=== PATIENT | male | born 1975 | race Two or more races ===

== ENCOUNTER 2018-12-26 18:33 | Inpatient (IN) | payer OTHER ==
[~2018-12-26] VITALS: Ht 170.2 cm; Wt 102.5 kg
[2018-12-26 18:42] VITALS: BP 117/79
--- NOTE | 2018-12-26 18:45 | NUR ---
PRODUCTION SUPV NOTES PATIENT ARRIVED VIA GURNEY, PATIENT ADMITTED FROM [facility] ([phone] ext [phone]). REPORT RECEIVED FROM JAYANT MARK. PATIENT ACCOMPANIED BY . PATIENT AWAKE ALERT AND ORIENTED X 4, VERBALLY RESPONSIVE AND RESPONDS TO VERBAL AND TACTILE STIMULI. NO ACUTE DISTRESS. NO PAIN OR DISCOMFORT. NO CHANGES IN LOC NOTED AT THIS TIME. PATIENT CALM AND RELAXED. ANAM TIPTON WEB USER EXPERIENCE STRATEGIST MADE AWARE OF PATIENT ARRIVAL. WILL ENDORSE TO INCOMING SHIFT FOR FARRAH. BED LOCKED AND IN LOW POSITION. BILATERAL UPPER SIDE RAILS UP AND LOCKED. CALL LIGHT WITHIN EASY REACH
[2018-12-26] MEDS ORDERED: MAG HYDROX/AL HYDROX/SIMETH 30 ML UDC PO PRN (19:00)
[2018-12-26] MEDS ORDERED: ACETAMINOPHEN 325 MG TABLET PO PRN (19:00)
[2018-12-26] MEDS ORDERED: MAGNESIUM HYDROXIDE 30 ML UDC PO PRN (19:00)
[2018-12-26] MEDS ORDERED: ONDANSETRON HCL/PF 4 MG/2 ML VIAL IVP PRN (19:00)
[2018-12-26] MEDS ORDERED: Z GUARD REMEDY 2 OZ OINT TP PRN (19:00)
--- NOTE | 2018-12-26 19:30 | NUR ---
SPANISH INSTRUCTOR INITIAL NOTES Patient in bed, awake. A/O x 4. On RA denies SOB. Admitted for acute anemia, sinus rhythm in the tele monitor. Call light within reach, safety, measure explained verbalized understanding. Will cont to monitor.
[2018-12-26 20:00] VITALS: BP 129/67
[2018-12-26 20:14] LABS: CALCIUM, SERUM 8.3 mg/dL (8.5-10.1); CREATININE 0.8 mg/dL (0.6-1.3)
[2018-12-26 20:19] LABS: ALBUMIN 3.4 g/dL (3.4-5.0); PHOSPHORUS 3.4 mg/dL (2.5-4.9); TOTAL PROTEIN, SERUM 7.2 g/dL (6.4-8.2)
[2018-12-26 20:34] LABS: BASOPHILS # (AUTO) 0.1 /CMM (0.0-0.2); BASOPHILS % (AUTO) 0.9 % (0.0-2.0); EOSINOPHILS % (AUTO) 2.4 % (0.0-6.0); HEMATOCRIT 27 % (39-51); HEMOGLOBIN 8.1 g/dL (13.5-17.5); LYMPHOCYTES # (AUTO) 1.8 /CMM (0.8-4.8); LYMPHOCYTES % (AUTO) 22.2 % (20.0-44.0); MEAN CORPUSCULAR HGB CONC 30 g/dl (31.0-36.0); MEAN CORPUSCULAR VOLUME 65 fL (80-96); MONOCYTES # (AUTO) 0.7 /CMM (0.1-1.30); MONOCYTES % (AUTO) 8.8 % (2.0-12.0); NEUTROPHILS # (AUTO) 5.5 /CMM (1.8-8.9); NEUTROPHILS % (AUTO) 65.7 % (43.0-81.0); PLATELET COUNT (AUTO) 379 /CMM (150-450); RED BLOOD CELL COUNT(AUTO) 4.21 MIL/uL (4.5-6.0); WHITE BLOOD COUNT (AUTO) 8.3 K/uL (4.3-11.0)
[2018-12-26 21:56] LABS: IRON, SERUM 61 ug/dl (50-175); TOTAL IRON BINDING CAPACITY 497 ug/dl (250-450)
[2018-12-26 22:11] LABS: FERRITIN 4 ng/mL (8-388)
[2018-12-27] VITALS (8 sets, daily range): BP systolic 107–119; BP diastolic 53–73
[2018-12-27 01:04] LABS: BASOPHILS # (AUTO) 0.1 /CMM (0.0-0.2); BASOPHILS % (AUTO) 1.1 % (0.0-2.0); EOSINOPHILS % (AUTO) 4.5 % (0.0-6.0); HEMATOCRIT 27 % (39-51); HEMOGLOBIN 8.1 g/dL (13.5-17.5); LYMPHOCYTES % (AUTO) 26.7 % (20.0-44.0); MEAN CORPUSCULAR HGB CONC 30 g/dl (31.0-36.0); MEAN CORPUSCULAR VOLUME 64 fL (80-96); MONOCYTES # (AUTO) 0.5 /CMM (0.1-1.30); MONOCYTES % (AUTO) 7.2 % (2.0-12.0); NEUTROPHILS # (AUTO) 4.6 /CMM (1.8-8.9); NEUTROPHILS % (AUTO) 60.5 % (43.0-81.0); PLATELET COUNT (AUTO) 376 /CMM (150-450); RED BLOOD CELL COUNT(AUTO) 4.18 MIL/uL (4.5-6.0); WHITE BLOOD COUNT (AUTO) 7.6 K/uL (4.3-11.0)
[2018-12-27 06:24] LABS: APPEARANCE,URINE CLEAR (CLEAR); BILIRUBIN,URINE NEGATIVE (NEGATIVE); BLOOD, URINE NEGATIVE Ery/uL (NEGATIVE); COLOR,URINE YELLOW (YELLOW); KETONES,URINE NEGATIVE (NEGATIVE); LEUKOCYTE ESTERASE ,URINE TRACE (NEGATIVE); NITRITE, URINE NEGATIVE (NEGATIVE); PROTEIN,URINE NEGATIVE (NEGATIVE); UGLUCOSE NEGATIVE (NEGATIVE); UROBILINOGEN,URINE 0.2 EU/dL (0.2)
--- NOTE | 2018-12-27 06:36 | NUR ---
ACCREDITED LEGAL SECRETARY CLOSING NOTES Patient in bed, stable oxygen saturation on RA denies SOB. Sinus rhythm in the tele monitor. Ambulates independently, jaramillo BM this shift no diarrhea, voiding well. VSS No acute events overnight. Per CARROT GRADER INSPECTOR to transfuse PRBC 1 unit to keep Hgb > 8 as a standing order, patient is aware. GI consult for internal hemorrhoids. Maintained safety. Will endorse to oncoming RN.
[2018-12-27 06:58] LABS: CALCIUM, SERUM 8.2 mg/dL (8.5-10.1); CREATININE 0.9 mg/dL (0.6-1.3); MAGNESIUM 2.3 mg/dL (1.8-2.4); PHOSPHORUS 4.1 mg/dL (2.5-4.9); POTASSIUM 4.1 mmol/L (3.5-5.1)
[2018-12-27 07:15] LABS: BASOPHILS # (AUTO) 0.1 /CMM (0.0-0.2); EOSINOPHILS % (AUTO) 5.1 % (0.0-6.0); HEMATOCRIT 26 % (39-51); HEMOGLOBIN 7.8 g/dL (13.5-17.5); LYMPHOCYTES # (AUTO) 1.5 /CMM (0.8-4.8); LYMPHOCYTES % (AUTO) 23.3 % (20.0-44.0); MEAN CORPUSCULAR HGB CONC 30 g/dl (31.0-36.0); MEAN CORPUSCULAR VOLUME 65 fL (80-96); MONOCYTES # (AUTO) 0.7 /CMM (0.1-1.30); MONOCYTES % (AUTO) 10.4 % (2.0-12.0); NEUTROPHILS % (AUTO) 60.2 % (43.0-81.0); PLATELET COUNT (AUTO) 391 /CMM (150-450); RED BLOOD CELL COUNT(AUTO) 3.97 MIL/uL (4.5-6.0); WHITE BLOOD COUNT (AUTO) 6.6 K/uL (4.3-11.0)
--- NOTE | 2018-12-27 07:15 | NUR ---
Tele/RN - Assessment Patient is alert and oriented x 4, denies pain, stable on room air, tele shows SR, no active bleeding at this time. Labs reviewed noted with hemoglobin 7.8, with standing order to transfuse 1unit PRBC to keep hgb above 8.0. Skin is intact. Patient is ambulatory with steady gait. All needs attended. Will continue with current medical management.
[2018-12-27 07:21] LABS: THYROID STIMULATING HORMONE 2.514 uIU/mL (0.358-3.74)
[2018-12-27 08:29] LABS: RBC,URINE NONE SEEN /HPF (0-2); WBC,URINE 0-2 /HPF (0-3)
[2018-12-27 08:30] LABS: BACTERIA,URINE None seen /HPF (None Seen); SQUAMOUS EPITHELIAL CELL,UR None Seen /HPF (None Seen)
[2018-12-27] MEDS: PANTOPRAZOLE 40 MG VIAL IV SCH (08:31)
--- NOTE | 2018-12-27 10:00 | NUR ---
MS/RN - TREASURY MANAGEMENT SALES CONSULTANT Gerry Seen and examined by GRAYSON Ruiz.
--- NOTE | 2018-12-27 11:00 | NUR ---
MS/RN - Consent for blood transfusion Patient signed consent for blood transfusion and copy of guide to blood transfusion provided. Patient's current hgb is 7.8, no active bleeding seen, will receive 1 unit PRBC as ordered.
--- NOTE | 2018-12-27 12:45 | NUR ---
MS/RN - Blood transfusion Patient with ongoing 1 unit PRBC, to infuse for 3 hours, no adverse reaction seen, denies shortness of breath, chills, itchiness, remain afebrile. Will continue to monitor closely.
[2018-12-27] MEDS: POLYETHYLENE GLYCOL 3350 17 GM POWD.PACK PO SCH (15:02)
--- NOTE | 2018-12-27 15:35 | NUR ---
MS/RN - Notes Blood transfusion completed with no adverse reaction seen. Will continue to monitor closely.
[2018-12-27] MEDS: PHENYLEPHRINE/SHARK LIVER 1 EA SUPP.RECT RC SCH ×2 (17:14→21:20)
[2018-12-27 17:18] LABS: BASOPHILS # (AUTO) 0.1 /CMM (0.0-0.2); BASOPHILS % (AUTO) 0.9 % (0.0-2.0); HEMATOCRIT 31 % (39-51); HEMOGLOBIN 9.4 g/dL (13.5-17.5); LYMPHOCYTES # (AUTO) 1.9 /CMM (0.8-4.8); LYMPHOCYTES % (AUTO) 23.6 % (20.0-44.0); MEAN CORPUSCULAR HGB CONC 30 g/dl (31.0-36.0); MEAN CORPUSCULAR VOLUME 67 fL (80-96); MONOCYTES # (AUTO) 0.8 /CMM (0.1-1.30); MONOCYTES % (AUTO) 9.4 % (2.0-12.0); NEUTROPHILS % (AUTO) 61.1 % (43.0-81.0); PLATELET COUNT (AUTO) 400 /CMM (150-450); RED BLOOD CELL COUNT(AUTO) 4.68 MIL/uL (4.5-6.0); WHITE BLOOD COUNT (AUTO) 8.2 K/uL (4.3-11.0)
--- NOTE | 2018-12-27 18:05 | NUR ---
MS/RN - End of shift summary Patient in no acute distress, no active bleeding seen, hemoglobin post blood transfusion was 9.4, continue to monitor hgb/hct Q8h. Patient for possible pending hemorrhoidectomy per Dr. Berrios. Will endorse to night nurse for continuity of care.
--- NOTE | 2018-12-27 19:45 | NUR ---
RN MS OPENING NOTES RECEIVED PATIENT IN BED AWAKE, ALERT AND ORIENTED X4, VERBALLY RESPONSIVE, ABLE TO MAKE NEEDS KNOWN. BREATHING EVEN AND UNLABORED. NO SOB NOTED. TOLERATING ROOM AIR. DENIES ANY PAIN OR DISCOMFORT. NO FACIAL GRIMACING IV ON RIGHT AC G#20 INTACT AND LEFT HAND G#20 INTACT AND PATENT. SKIN DRY AND WARM TO TOUGH. AFEBRILE. NO ACTIVE BLEEDING NOTED. ALL OTHER NEEDS ATTENDED TO. SAFETY MEASURES IN PLACE. CALL LIGHT WITHIN REACH. WILL CONTINUE TO MONITOR.
--- NOTE | 2018-12-27 20:48 | NUR ---
RN MS NOTES RECEIVED TELEPHONE ORDER FROM DR. OROZCO: -OBTAIN EGD AND COLONOSCOPY CONSENT - START PATIENT ON BOWEL PREP (GOLYTLE) - PROCEDURE TO BE DONE AROUND 11AM TOMORROW AM. ORDER NOTED AND CARRIED OUT.
[2018-12-27] MEDS ORDERED: PEG 3350/NA SULF,BICARB,CL/KCL 4,000 ML BOTTLE PO ONE (20:50)
--- NOTE | 2018-12-27 20:52 | NUR ---
RN MS NOTES PLACED A CALL TO PHARMACY REGARDING GOLYTELY SOLUTION. PER PHARMACY REP., THEY WILL SEND MEDICATION THROUGH [facility].
--- NOTE | 2018-12-27 21:21 | NUR ---
RN MS NOTES PATIENT SIGNED CONSENT FORMS FOR EGD AND COLONOSCOPY. JACQUES STARTED. WILL CONTINUE TO MONITOR.
--- NOTE | 2018-12-27 21:21 | NUR ---
RN MS NOTES ANUSOL SUPPOSITORY MARKED NON-ADMIN. DAY NURSE ALREADY GAVE IT DURING DAY SHIFT.
[2018-12-27] MEDS ORDERED: PHENYLEPHRINE/SHARK LIVER 1 EA SUPP.RECT RC SCH (22:00)
[2018-12-28] VITALS (8 sets, daily range): BP systolic 102–117; BP diastolic 55–68
[2018-12-28 01:44] LABS: HEMOGLOBIN 9.1 g/dL (13.5-17.5)
[2018-12-28 06:35] LABS: BASOPHILS # (AUTO) 0.1 /CMM (0.0-0.2); BASOPHILS % (AUTO) 0.9 % (0.0-2.0); EOSINOPHILS % (AUTO) 4.7 % (0.0-6.0); HEMATOCRIT 28 % (39-51); HEMOGLOBIN 8.7 g/dL (13.5-17.5); LYMPHOCYTES # (AUTO) 1.5 /CMM (0.8-4.8); LYMPHOCYTES % (AUTO) 18.8 % (20.0-44.0); MEAN CORPUSCULAR HGB CONC 31 g/dl (31.0-36.0); MEAN CORPUSCULAR VOLUME 66 fL (80-96); MONOCYTES # (AUTO) 0.6 /CMM (0.1-1.30); MONOCYTES % (AUTO) 7.7 % (2.0-12.0); NEUTROPHILS # (AUTO) 5.6 /CMM (1.8-8.9); NEUTROPHILS % (AUTO) 67.9 % (43.0-81.0); PLATELET COUNT (AUTO) 364 /CMM (150-450); RED BLOOD CELL COUNT(AUTO) 4.28 MIL/uL (4.5-6.0); WHITE BLOOD COUNT (AUTO) 8.2 K/uL (4.3-11.0)
[2018-12-28 07:01] LABS: CALCIUM, SERUM 8.4 mg/dL (8.5-10.1); CREATININE 0.8 mg/dL (0.6-1.3); MAGNESIUM 2.3 mg/dL (1.8-2.4); PHOSPHORUS 3.9 mg/dL (2.5-4.9); POTASSIUM 3.9 mmol/L (3.5-5.1)
--- NOTE | 2018-12-28 07:05 | NUR ---
RN MS CLOSING NOTES PATIENT RESTING IN BED. NO ACUTE CHANGES THROUGHOUT SHIFT. AT BEDSIDE. BREATHING EVEN AND UNLABORED. NO SOB NOTED. TOLERATING ROOM AIR. DENIES ANY PAIN OR DISCOMFORT. NO FACIAL GRIMACING IV ON RIGHT AC G#20 INTACT AND LEFT HAND G#20 INTACT AND PATENT. SKIN DRY AND WARM TO TOUGH. AFEBRILE. NO ACTIVE BLEEDING NOTED. PATIENT'S BOWELS ARE LIGHT BROWN COLORED (SEE-THROUGH), WITH REALLY SMALL BOWELS FORMED. ALL OTHER NEEDS ATTENDED TO. SAFETY MEASURES IN PLACE. CALL LIGHT WITHIN REACH. WILL ENDORSE TO ONCOMING NURSE FOR FARRAH.
--- NOTE | 2018-12-28 07:30 | NUR ---
MS/RN - Assessment Patient is alert and oriented x 4, denies pain, stable on room air, labs reviewed noted with hemoglobin 8.7, no active bleeding at this time. Patient is scheduled for EGD/Colonoscopy today, consent signed, currently NPO, bowel prep done, still with small stool particles otherwise clear. Patient is ambulatory with steady gait. All needs attended. Will continue with current medical management.
[2018-12-28] MEDS: POLYETHYLENE GLYCOL 3350 17 GM POWD.PACK PO SCH (08:06)
[2018-12-28] MEDS: PANTOPRAZOLE 40 MG VIAL IV SCH (08:19)
--- NOTE | 2018-12-28 09:40 | NUR ---
MS/RN - Notes Patient noted with bright red bloody stool no particles. Will continue to monitor closely.
--- NOTE | 2018-12-28 09:45 | NUR ---
MS/RN - Notes Surgery called, it will be an early case instead of 14:00 and will get the patient now. Patient made aware.
--- NOTE | 2018-12-28 09:55 | NUR ---
MS/RN - Notes Patient sent to OR in no acute distress, EGD/Colonoscopy consent signed, pre-op checklist completed, saline lock on the RAC and left hand are both patent and intact. Endorsed accordingly.
[2018-12-28] MEDS ORDERED: PHENYLEPHRINE/SHARK LIVER 1 EA SUPP.RECT RC SCH (11:00)
--- NOTE | 2018-12-28 11:20 | NUR ---
MS/RN - Notes Patient back in his room post EGD/Colonoscopy awake, alert and oriented, denies pain, on oxygen at 2lpm via NC. EGD showed anemia and gastritis and Colonoscopy showed hemorrhoid with no bleeding seen. Will monitor vital signs per protocol. Family at bedside.
[2018-12-28] MEDS: FAMOTIDINE (20 MG) 20 MG TABLET PO SCH ×2 (11:48→21:44)
[2018-12-28] MEDS: PHENYLEPHRINE/SHARK LIVER 1 EA SUPP.RECT RC SCH ×2 (11:49→21:44)
--- NOTE | 2018-12-28 13:10 | NUR ---
MS/RN - Consent Patient signed the consent for internal and external hemorrhoidectomy tomorrow, NPO after midnight.
[2018-12-28] MEDS: SOD FERRIC GLUC 125 MG in IV NS 0.9% 100 ML IV SCH (13:21)
--- NOTE | 2018-12-28 15:30 | NUR ---
MS/RN - Notes Patient resting comfortably, no further episodes of bloody stool, denies pain at this time. Family at bedside.
--- NOTE | 2018-12-28 17:55 | NUR ---
MS/RN - End of shift summary No new events seen. Patient for internal and external hemorrhoidectomy tomorrow, NPO after midnight. Saline lock on RAC and left hand are both patent and intact. All needs attended. Will endorse to night nurse for continuity of care.
--- NOTE | 2018-12-28 20:45 | NUR ---
RN MS OPENING NOTES RECEIVED PATIENT IN BED AWAKE, ALERT AND ORIENTED X4, VERBALLY RESPONSIVE, ABLE TO MAKE NEEDS KNOWN. FAMILY AT BEDSIDE. PATIENT IS S/P EGD AND COLONOSCOPY. PATIENT IS DOING FINE. BREATHING EVEN AND UNLABORED. NO SOB NOTED. TOLERATING ROOM AIR. DENIES ANY PAIN OR DISCOMFORT. NO FACIAL GRIMACING IV ON RIGHT AC G#20 INTACT AND LEFT HAND G#20 INTACT AND PATENT. SKIN DRY AND WARM TO TOUGH. AFEBRILE. NO ACTIVE BLEEDING NOTED. ALL OTHER NEEDS ATTENDED TO. SAFETY MEASURES IN PLACE. CALL LIGHT WITHIN REACH. WILL CONTINUE TO MONITOR.
--- NOTE | 2018-12-29 06:52 | NUR ---
RN MS CLOSING NOTES PATIENT RESTING IN BED. NO ACUTE CHANGES THROUGHOUT SHIFT. AT BEDSIDE. BREATHING EVEN AND UNLABORED. NO SOB NOTED. TOLERATING ROOM AIR. DENIES ANY PAIN OR DISCOMFORT. NO FACIAL GRIMACING IV ON RIGHT AC G#20 INTACT AND LEFT HAND G#20 INTACT AND PATENT. SKIN DRY AND WARM TO TOUGH. AFEBRILE. NO ACTIVE BLEEDING NOTED. ALL OTHER NEEDS ATTENDED TO. ANTICIPATING HEMORRHOIDECTOMY TODAY AM. SAFETY MEASURES IN PLACE. CALL LIGHT WITHIN REACH. WILL ENDORSE TO ONCOMING NURSE FOR FARRAH.
--- NOTE | 2018-12-29 06:53 | NUR ---
RN MS NOTES PATIENT KEPT NPO PAST MIDNIGHT.
[2018-12-29 06:54] LABS: BASOPHILS # (AUTO) 0.1 /CMM (0.0-0.2); BASOPHILS % (AUTO) 0.6 % (0.0-2.0); EOSINOPHILS % (AUTO) 5.6 % (0.0-6.0); HEMATOCRIT 31 % (39-51); HEMOGLOBIN 9.4 g/dL (13.5-17.5); LYMPHOCYTES # (AUTO) 1.9 /CMM (0.8-4.8); LYMPHOCYTES % (AUTO) 22.8 % (20.0-44.0); MEAN CORPUSCULAR HGB CONC 30 g/dl (31.0-36.0); MEAN CORPUSCULAR VOLUME 66 fL (80-96); MONOCYTES # (AUTO) 0.6 /CMM (0.1-1.30); MONOCYTES % (AUTO) 6.6 % (2.0-12.0); NEUTROPHILS # (AUTO) 5.5 /CMM (1.8-8.9); NEUTROPHILS % (AUTO) 64.4 % (43.0-81.0); PLATELET COUNT (AUTO) 408 /CMM (150-450); RED BLOOD CELL COUNT(AUTO) 4.71 MIL/uL (4.5-6.0); WHITE BLOOD COUNT (AUTO) 8.5 K/uL (4.3-11.0)
[2018-12-29] MEDS ORDERED: ANESTHESIA TRAY IN PYXIS 1 EA TRAY MC ONE (07:04)
[2018-12-29 07:25] LABS: CALCIUM, SERUM 8.6 mg/dL (8.5-10.1); CREATININE 0.8 mg/dL (0.6-1.3); MAGNESIUM 2.3 mg/dL (1.8-2.4); POTASSIUM 3.8 mmol/L (3.5-5.1)
--- NOTE | 2018-12-29 07:30 | NUR ---
MS RN Opening Notes Received patient awake, resting in bed. Semi-Fowlers position, supine. Alert and oriented x4, able to make needs known. No complaints of shortness of breath or pain at this time. Respirations even and unlabored on room air, no acute distress noted. Peripheral IV to the left hand 20 gauge and right AC 20 gauge, intact, patent and saline locked. Patient currently NPO for surgery, consent forms signed and checklist completed. Updated patient on current plan of care and safety measures. Safety and fall precautions in place: bed in lowest and locked position, side rails up x2, bed alarm on, call light and personal possessions within reach. Reminded patient of safety measures, verbalized understanding. Will continue to monitor and intervene as needed.
[2018-12-29 08:00] VITALS: BP 126/75
[2018-12-29] MEDS ORDERED: MIDAZOLAM HCL 2 MG/2ML VIAL ONE (08:17)
[2018-12-29] MEDS ORDERED: FENTANYL PF 250MCG/5ML AMPUL ONE (08:17)
[2018-12-29] MEDS ORDERED: METOCLOPRAMIDE HCL 10 MG/2 ML VIAL ONE (08:18)
[2018-12-29] MEDS ORDERED: ROCURONIUM BROMIDE 50 MG/5 ML ONE (08:18)
[2018-12-29] MEDS ORDERED: FAMOTIDINE/PF INJ 20 MG/2 ML VIAL IV ONE (08:18)
[2018-12-29] MEDS: FAMOTIDINE (20 MG) 20 MG TABLET PO SCH ×2 (08:36→21:10)
[2018-12-29] MEDS: POLYETHYLENE GLYCOL 3350 17 GM POWD.PACK PO SCH (08:36)
--- NOTE | 2018-12-29 09:00 | NUR ---
MS/RN - Notes Patient sent to OR in no acute distress, procedure consent signed, pre-op checklist completed, saline lock on the RAC and left hand are both patent and intact. Endorsed accordingly.
[2018-12-29 09:01] LABS: EOSINOPHILS % (MANUAL) 3 % (0-4); LYMPHOCYTES % (MANUAL) 16 % (16-48); MONOCYTES % (MANUAL) 6 % (0-11.0); NEUTROPHILS % (MANUAL) 75 (42-76)
[2018-12-29] MEDS ORDERED: LIDOCAINE HCL/PF 1% 30 ML SDV ONE (10:25)
[2018-12-29] MEDS ORDERED: BUPIVACAINE MPF 0.5% W/EPI INJ 30 ML VIAL ONE (10:25)
[2018-12-29] MEDS ORDERED: FENTANYL PF 100MCG/2ML AMPUL ONE (11:32)
[2018-12-29] MEDS ORDERED: GABAPENTIN 300 MG CAPSULE PO ONE (12:00)
[2018-12-29] MEDS ORDERED: IBUPROFEN 400 MG TABLET PO ONE (12:00)
[2018-12-29] MEDS ORDERED: ACETAMINOPHEN 325 MG TABLET PO ONE (12:00)
--- NOTE | 2018-12-29 12:16 | NUR ---
MS/RN - Notes Patient back in his room post EGD/Colonoscopy asleep but easily arousable, alert and oriented, denies pain, on oxygen at 2 Lpm via nasal cannula. Report received from PACU nurse. Will monitor vital signs per protocol. Family at bedside.
[2018-12-29 12:18] VITALS: BP 120/67
[2018-12-29 12:18] LABS: HEMOGLOBIN 9.2 g/dL (13.5-17.5)
[2018-12-29 12:30] VITALS: BP 113/68
[2018-12-29 12:45] VITALS: BP 116/65
[2018-12-29 15:14] LABS: BASOPHILS % (AUTO) 0.3 % (0.0-2.0); HEMATOCRIT 33 % (39-51); HEMOGLOBIN 9.5 g/dL (13.5-17.5); LYMPHOCYTES # (AUTO) 0.8 /CMM (0.8-4.8); LYMPHOCYTES % (AUTO) 4.3 % (20.0-44.0); MEAN CORPUSCULAR HGB CONC 29 g/dl (31.0-36.0); MEAN CORPUSCULAR VOLUME 68 fL (80-96); MONOCYTES # (AUTO) 0.6 /CMM (0.1-1.30); MONOCYTES % (AUTO) 3.2 % (2.0-12.0); NEUTROPHILS # (AUTO) 16.4 /CMM (1.8-8.9); NEUTROPHILS % (AUTO) 92.2 % (43.0-81.0); PLATELET COUNT (AUTO) 449 /CMM (150-450); RED BLOOD CELL COUNT(AUTO) 4.82 MIL/uL (4.5-6.0); WHITE BLOOD COUNT (AUTO) 17.8 K/uL (4.3-11.0)
[2018-12-29 15:30] LABS: BAND % (MANUAL) 4 % (0.0-5.0); LYMPHOCYTES % (MANUAL) 4 % (16-48); NEUTROPHILS % (MANUAL) 92 (42-76)
[2018-12-29] MEDS: SOD FERRIC GLUC 125 MG in IV NS 0.9% 100 ML IV SCH (15:42)
[2018-12-29 16:00] VITALS: BP 111/58
--- NOTE | 2018-12-29 19:30 | NUR ---
MS RN Closing Notes Patient awake, resting in bed. Semi-Fowlers position, supine. Alert and oriented x4, able to make needs known. No complaints of shortness of breath or pain at this time. Respirations even and unlabored on room air, no acute distress noted. Peripheral IV to the left hand 20 gauge and right AC 20 gauge, intact, patent and saline locked. Updated patient on current plan of care and safety measures. Safety and fall precautions in place: bed in lowest and locked position, side rails up x2, bed alarm on, call light and personal possessions within reach. Reminded patient of safety measures, verbalized understanding. Spouse at bedside. Endorsed care to DEEDEE Sidhu for continuity of care.
--- NOTE | 2018-12-29 19:35 | NUR ---
MS RN RECEIVE PT IN BED. A/O X 4. RESPIRATIONS EVEN AND UNLABORED, NO SOB NOTED, NO DISTRESS, SAFETY MEASURES IN PLACE. WILL CONTINUE TO MONITOR.
[2018-12-29 20:00] VITALS: BP 102/58
[2018-12-29] MEDS: PHENYLEPHRINE/SHARK LIVER 1 EA SUPP.RECT RC SCH (21:10)
[2018-12-29] MEDS: HYDROCODONE/APAP 5/325MG 1 EACH TABLET PO PRN (21:48)
--- NOTE | 2018-12-30 06:01 | NUR ---
MS RN CLOSING NOTE PT IN BED ASLEEP EASILY AWAKEN, RESPIRATIONS EVEN AND UNLABORED. NOT IN DISTRESS, STABLE. NEEDS ATTENDED AND ANTICIPATED, KEPT DRY, CLEAN AND COMFORT. NO COMPLAIN OF PAIN. NO S/S OF BLEEDING S/P HEMORRHOIDECTOMY. SAFETY MEASURES IN PLACE, BED IN LOW LOCKED POSITION, CALL LIGHT WITHIN EASY REACH. ENDORSE TO NEXT SHIFT CONTINUITY OF CARE.
[2018-12-30 07:59] LABS: BASOPHILS # (AUTO) 0.1 /CMM (0.0-0.2); BASOPHILS % (AUTO) 0.4 % (0.0-2.0); EOSINOPHILS % (AUTO) 0.4 % (0.0-6.0); HEMATOCRIT 29 % (39-51); HEMOGLOBIN 8.6 g/dL (13.5-17.5); LYMPHOCYTES # (AUTO) 1.4 /CMM (0.8-4.8); LYMPHOCYTES % (AUTO) 9.8 % (20.0-44.0); MEAN CORPUSCULAR HGB CONC 30 g/dl (31.0-36.0); MEAN CORPUSCULAR VOLUME 67 fL (80-96); MONOCYTES # (AUTO) 0.8 /CMM (0.1-1.30); NEUTROPHILS # (AUTO) 11.6 /CMM (1.8-8.9); NEUTROPHILS % (AUTO) 83.4 % (43.0-81.0); PLATELET COUNT (AUTO) 355 /CMM (150-450); RED BLOOD CELL COUNT(AUTO) 4.32 MIL/uL (4.5-6.0); WHITE BLOOD COUNT (AUTO) 13.9 K/uL (4.3-11.0)
[2018-12-30 08:00] VITALS: BP 108/60
[2018-12-30 08:02] LABS: CALCIUM, SERUM 8.4 mg/dL (8.5-10.1); CREATININE 0.8 mg/dL (0.6-1.3); POTASSIUM 3.8 mmol/L (3.5-5.1)
[2018-12-30] MEDS: HYDROCODONE/APAP 5/325MG 1 EACH TABLET PO PRN (10:38)
[2018-12-30] MEDS: FAMOTIDINE (20 MG) 20 MG TABLET PO SCH (10:38)
[2018-12-30] MEDS: POLYETHYLENE GLYCOL 3350 17 GM POWD.PACK PO SCH (11:27)
--- NOTE | 2018-12-30 11:30 | NUR ---
[employer] MEDICAL SERVICES ASSISTANT IN AND PLANS FOR DISCHARGE TODAY IF H AND H MAINTAINS OR GOES UP.
[2018-12-30] MEDS: SOD FERRIC GLUC 125 MG in IV NS 0.9% 100 ML IV SCH (14:53)
[2018-12-30 15:36] LABS: HEMOGLOBIN 8.8 g/dL (13.5-17.5)
[2018-12-30 16:00] VITALS: BP 105/65
--- NOTE | 2018-12-30 16:00 | NUR ---
RN TEXTED Juan TIPTON WITH DC RESULTS.PLANS FOR DC THIS AFTERNOON.
--- NOTE | 2018-12-30 17:00 | NUR ---
HEP LOCK OUT,GIVEN ALL DC INSTRUCTIONS ALONG WITH PRESCRIPTIONS REVIEW OF ALL MEDS,BELONGING SHEET SIGNED.PT. TO GO HOME AFTER ARRIVES.MED X 1 FOR PAIN WITH NORCO.
[2018-12-30] MEDS ORDERED: PHENYLEPHRINE RC (17:13)
[2018-12-30] MEDS ORDERED: FERR325T23 PO (17:13)
[2018-12-30] MEDS ORDERED: FAMO20TA80 PO (17:13)
[2018-12-30] MEDS ORDERED: [UNRECOGNIZED DRUG - OTHER] RC (17:13)
[2018-12-30] MEDS ORDERED: HYDR-3972 PO (17:13)
[2018-12-30] MEDS ORDERED: POLY17PO4 PO (17:13)
--- NOTE | 2018-12-30 19:17 | NUR ---
MS RN RECEIVE PT IN BED. A/O X 4. STABLE FOR DISCHARGE AWAITING FOR PRINTED CIRCUIT DESIGNER
--- NOTE | 2018-12-30 20:18 | NUR ---
PATIENT DISCHARGE PATIENT LEFT AT 2049, PATIENT ON STABLE CONDITION NO S/S OF DISTRESS NOTED, NO COMPLAIN OF PAIN, NO S/S OF BLEEDING. VS STABLE, HEALTH EDUCATION AND EXIT CARE WAS PROVIDED, EDUCATION ABOUT DISEASE AND RISKS AND BENEFITS FOLLOW UP CARE PROVIDED, VERBALIZED UNDERSTANDING. DOCUMENTS WAS PROVIDED. CONTINUE MEDICATION PRESCRIPTION WAS PROVIDED. VERBALIZED UNDERSTANDING. ALL BELONGINGS WAS TAKEN, PT LEFT VIA W/C WITH THEIR OWN TRANSPORTATION. PATIENT APPRECIATIVE TO NURSES AND THANKFUL. Addendum: 12/30/18 at 2024 by PRESTON OSMAN RN CORRECTION MISTAKEN ENTRY: PATIENT LEFT AT 1949 NOT 2049
== END 2018-12-30 19:50 | disposition home or self-care (01) | DRG 226 ==
LOC: TELE 18:33 → MED 12-27 10:43
PROVIDERS: ADMIT Registered Nurse; ATTEND Registered Nurse
PROC: 30233N1 Transfusion of Nonautologous Red Blood Cells into Peripheral Vein, Percutaneous Approach (ICD-10-PCS; 2018-12-27)
PROC: 0DB78ZX Excision of Stomach, Pylorus, Via Natural or Artificial Opening Endoscopic, Diagnostic (ICD-10-PCS; principal; 2018-12-28)
PROC: 0DJD8ZZ Inspection of Lower Intestinal Tract, Via Natural or Artificial Opening Endoscopic (ICD-10-PCS; principal; 2018-12-28)
PROC: 06BY0ZC Excision of Hemorrhoidal Plexus, Open Approach (ICD-10-PCS; 2018-12-29)
PROC: 06LY0ZC Occlusion of Hemorrhoidal Plexus, Open Approach (ICD-10-PCS; 2018-12-29)
DX: K64.8 Other hemorrhoids (principal); E66.01 Morbid (severe) obesity due to excess calories; D50.9 Iron deficiency anemia, unspecified; Z68.35 Body mass index [BMI] 35.0-35.9, adult; K57.90 Diverticulosis of intestine, part unspecified, without perforation or abscess without bleeding; K29.70 Gastritis, unspecified, without bleeding; K64.2 Third degree hemorrhoids; K64.1 Second degree hemorrhoids
CPT/HCPCS: 36415; 80048-TC; 80053-TC; 80061-TC; 81000-TC; 82728-TC; 83540-TC; 83735-TC; 84100-TC; 84443-TC; 85025-TC; 85027-TC; 85610-TC; 85730-TC; 86850-TC; 86921-TC; 87081-TC; 88304-TC; 88305-TC; 88313-TC; 88342; A6402; A6403; C9113; G0378; J0690; J2250; J2405; J2704; J2710; J2765; J2916; J3010; J3490; J7030; J7050; P9016-BL